=== PATIENT | female | born 1945 | race Caucasian/White ===

== ENCOUNTER 2017-11-02 10:54 | Emergency (ER) | payer MEDICARE, OTHER ==
[2017-11-02 11:25] LABS: BASOPHILS # (AUTO) 0.1 10^3/uL (0.0-0.1); BASOPHILS % (AUTO) 1.4 %; EOSINOPHILS # (AUTO) 0.1 10^3/uL (0.0-0.7); EOSINOPHILS % (AUTO) 0.7 %; LYMPHOCYTES # (AUTO) 2.2 10^3/uL (1.5-3.5); LYMPHOCYTES % (AUTO) 20.9 %; MEAN CORPUSCULAR HEMOGLOBIN 30.1 pg (27.0-31.0); MEAN CORPUSCULAR HGB CONC 34.4 g/dL (32.0-36.0); MEAN CORPUSCULAR VOLUME 87.7 fL (81.0-99.0); MEAN PLATELET VOLUME 8.7 fL (7.9-10.8); MONOCYTES # (AUTO) 0.6 10^3/uL (0.0-1.0); MONOCYTES % (AUTO) 5.5 %; NEUTROPHILS # (AUTO) 7.5 10^3/uL (1.5-6.6); NEUTROPHILS % (AUTO) 71.5 %; PLT - PLATELET COUNT 174 10^3/uL (130-450); RED CELL DISTRIBUTION WIDTH 13.3 % (12.0-15.0); WHITE BLOOD COUNT 10.5 x10^3/uL (4.8-10.8)
[2017-11-02 11:36] LABS: ALBUMIN 4.1 g/dL (3.2-5.5); ALBUMIN/GLOBULIN RATIO 1.4 (1.0-2.2); BILIRUBIN,TOTAL 0.6 mg/dL (0.2-1.0); CALCIUM 9.3 mg/dL (8.5-10.3); CREATININE 0.9 mg/dL (0.4-1.0)
[2017-11-02 11:40] LABS: BILIRUBIN,URINE NEGATIVE (NEGATIVE); GLUCOSE, URINE (UA) NEGATIVE (NEGATIVE); KETONES,URINE (UA) NEGATIVE (NEGATIVE); LEUKOCYTE ESTERASE, URINE SMALL (NEGATIVE); NITRITE,URINE NEGATIVE (NEGATIVE); OCCULT BLOOD,URINE LARGE (NEGATIVE); PROTEIN,URINE TRACE mg/dL (NEGATIVE); UROBILINOGEN,URINE 1 (NORMAL) E.U./dL (NORMAL)
[2017-11-02 11:59] LABS: CLARITY,URINE CLEAR (CLEAR)
[2017-11-02] MEDS ORDERED: KETOROLAC 60 MG/2 ML VIAL IVP STA (12:02)
[2017-11-02] MEDS ORDERED: SODIUM CHLORIDE 0.9% 1,000 ML IV ONE (12:02)
--- NOTE | 2017-11-02 12:03 | ED Physician Documentation ---
PD HPI ABD PAIN - Stated complaint Stated Complaint: VOMITING/WEAKNESS - Chief complaint Chief Complaint: Abd Pain - History obtained from History obtained from: Patient - History of Present Illness Timing - onset: How many days ago (4) Timing - duration: Days (4) Timing - details: Gradual onset, Still present, Waxing and waning Pain level max: 10 Pain level now: 7 Quality: Sharp, Pain Location: LUQ, Suprapubic Radiation: Left flank Improved by: Other (nothing) Associated symptoms: Nausea, Vomiting, Dizzy, Near syncope / syncope Similar symptoms before: Has not had sx before Recently seen: Not recently seen - Additional information Additional information: 72-year-old female is been sick for 4 days with nausea vomiting and left flank pain. She was expecting this to resolve and it has not. She is come to the emergency department now with weakness and nausea with left flank pain. She does state that she has been treated for urinary tract infection about 1 month ago. Review of Systems Constitutional: reports: Chills, Fatigue. denies: Fever Eyes: denies: Decreased vision Ears: denies: Ear pain Nose: denies: Rhinorrhea / runny nose, Congestion Throat: denies: Sore throat Cardiac: denies: Palpitations Respiratory: denies: Dyspnea, Cough GI: reports: Abdominal Pain, Nausea, Vomiting : denies: Dysuria, Frequency Skin: denies: Rash Musculoskeletal: reports: Back pain. 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 - Present Medications Home Medications: Ambulatory Orders Medication Instructions Recorded Confirmed SUMAtriptan [Imitrex] 25 mg PRN PRN 11/02/17 11/02/17 - Allergies Allergies/Adverse Reactions: Allergies Allergy/AdvReac Type Severity Reaction Status Date / Time propoxyphene [From Darvon] Allergy Mild Nausea Verified 11/02/17 11:00 - Social History Does the pt smoke?: No Smoking Status: Never smoker Does the pt drink ETOH?: No - Immunizations Immunizations are current?: Yes PD ED PE NORMAL - Vitals Vital signs reviewed: Yes (hypertensive ) - General General: Alert and oriented X 3, No acute distress, Well developed/nourished - HEENT HEENT: Atraumatic, PERRL - Neck Neck: Supple, no meningeal sign, No bony TTP - Cardiac Cardiac: RRR, No murmur - Respiratory Respiratory: No respiratory distress, Clear bilaterally - Abdomen Abdomen: Soft, Other (LUQ pain to palp with pain to bimanual palpation of the left kidney) - Back Back: No CVA TTP, No spinal TTP - Derm Derm: Normal color, Warm and dry, No rash - Extremities Extremities: No deformity, No edema - Neuro Neuro: Alert and oriented X 3, vest maker 2-12 intact, No motor deficit, No sensory deficit, Normal speech Eye Opening: Spontaneous Motor: Obeys Commands Verbal: Oriented GCS Score: 15 - Psych Psych: Normal mood, Normal affect Results - Vitals Vitals: Vital Signs - 24 hr 11/02/17 11/02/17 10:56 13:14 Temperature 36.5 C Heart Rate 67 74 Respiratory 16 16 Rate Blood Pressure 137/98 H 127/73 O2 Saturation 98 97 Oxygen O2 Source Room air - Labs Labs: Laboratory Tests 11/02/17 11/02/17 11/02/17 11:13 11:13 11:31 WBC 10.5 RBC 5.30 Hgb 16.0 Hct 46.5 MCV 87.7 MCH 30.1 MCHC 34.4 RDW 13.3 Plt Count 174 MPV 8.7 Neut # (Auto) 7.5 H Lymph # (Auto) 2.2 Mineral # (Auto) 0.6 Eos # (Auto) 0.1 Baso # (Auto) 0.1 Absolute Nucleated RBC 0.01 Nucleated RBC % 0.1 Sodium 136 Potassium 3.4 L Chloride 101 Carbon Dioxide 29 Anion Gap 6.0 BUN 15 Creatinine 0.9 Estimated GFR (MDRD) 62 L Glucose 119 H Calcium 9.3 Total Bilirubin 0.6 AST 16 ALT 15 Alkaline Phosphatase 64 Total Protein 7.0 Albumin 4.1 Globulin 2.9 Albumin/Globulin Ratio 1.4 Lipase 111 H Urine Color YELLOW Urine Clarity CLEAR Urine pH 8.0 H Ur Specific [place] 1.010 Urine Protein TRACE Urine Glucose (UA) NEGATIVE Urine Ketones NEGATIVE Urine Occult Blood LARGE H Urine Nitrite NEGATIVE Urine Bilirubin NEGATIVE Urine Urobilinogen 1 (NORMAL) Ur Leukocyte Esterase SMALL H Urine RBC TNTC H Urine WBC 4-5 Ur Squamous Epith Cells RARE Squamous Urine Bacteria Moderate H Ur Microscopic Review INDICATED Urine Culture Comments INDICATED - Rads (name of study) CT abdomen and pelvis with Radiology: Prelim report reviewed (Impression: 1. 5 mm distal left ureter stone with mild to moderate hydronephrosis. 2 Colonic diverticulosis without acute diverticulitis. 3 Uterine fibroids.), EMP read indepedently, See rad report Procedures - IVC sono (time) 1145 Bedside IVC sono: IVC measures (cm) (0.89), IVC collapsed c insp (cm) (complete) , Dehydration (est 2 liter deficit) PD MEDICAL DECISION MAKING - ED course Complexity details: reviewed old records, reviewed results, re-evaluated patient , considered differential, d/w patient, d/w family ED course: Previously healthy 72-year-old female has developed left flank pain and nausea and vomiting. This is been present for about 4 days. She is found to be dehydrated on interrogation of the inferior vena cava and she does appear to have hydronephrosis and some mild left flank tenderness on the left kidney. In comparison to the right the right kidney is sonographically nontender and without hydronephrosis. There is blood in the urine. Concern is for a kidney stone and a CT scan of the abdomen pelvis is undertaken. The patient's urine shows red blood cells and no white blood cells and the CT shows a 5 mm stone in the distal left ureter. This does appear to explain the patient's symptoms. She is administered Toradol and saline. She has good relief with this and we have discussed the natural history of kidney stone and reasons to return to the emergency department. - Sepsis Event Vital Signs: Vital Signs - 24 hr 11/02/17 11/02/17 10:56 13:14 Temperature 36.5 C Heart Rate 67 74 Respiratory 16 16 Rate Blood Pressure 137/98 H 127/73 O2 Saturation 98 97 Oxygen O2 Source Room air Departure - Departure Disposition: 01 Home, Self Care Clinical Impression: Ureterolithiasis Condition: Stable Instructions: ED Stone Renal W Colic Follow-Up: Ifrah Archibald PA-C [Primary Care Provider] - Comments: Today it appears your pain in the left flank is related to a kidney stone that is about ready to pass. You can expect that this will be painful and may last several days to a week. If you have unrelenting pain or pain you are not able to control with Aleve at home, return to the emergency department for pain control. If your pain persists beyond the week seek follow-up with a urologist. Discharge Date/Time: 11/02/17 14:51
[2017-11-02 12:17] LABS: BACTERIA,URINE Moderate /HPF (None Seen); RBC,URINE TNTC /HPF (0-5); SQUAMOUS EPITHELIAL CELL,UR RARE Squamous (<= Few)
[2017-11-02 13:15] VITALS: BP 127/73
--- NOTE | 2017-11-02 13:52 | CT Report ---
Reason: left flank pain Procedure Date: 11/02/2017 Accession Number: [id number] / [id number] Procedure: CT - Abdomen/Pelvis W/O CPT Code: FULL RESULT: EXAM: CT ABDOMEN AND PELVIS EXAM DATE: 11/02/2017 01:13 PM. CLINICAL HISTORY: Left flank pain. COMPARISONS: ABD/PEL 03/16/2009 12:58 AM. TECHNIQUE: Routine helical CT imaging was performed through the abdomen and pelvis. IV contrast: No. Enteric contrast: No. Reconstructions: Coronal and sagittal. In accordance with CT protocol optimization, one or more of the following dose reduction techniques were utilized for this exam: automated exposure control, adjustment of mA and/or KV based on patient size, or use of iterative reconstructive technique. FINDINGS: Lung Bases: Unremarkable. Liver: There are small hypodensities within the liver which appear without significant change and are consistent with cysts. Gallbladder/Bile Ducts: Unremarkable. Spleen: Normal in size and contour. Pancreas: Normal in size and contour. Adrenal Glands: Normal. Kidneys: There is mild to moderate hydronephrosis of the left kidney with perinephric edema. There is a distal left ureter stone measuring 5 mm in diameter on image 80. No right-sided kidney stone or hydronephrosis. Peritoneal Cavity/Bowel: There are a mild to moderate number of colonic diverticula. No dilated bowel loops or transition zone. No free fluid or free air. Pelvic Organs: There is a lobulated contour to the uterus. There is a heterogeneously calcified mass in the uterus measuring 4.6 cm transverse consistent with a fibroid. Urinary bladder appears unremarkable. Vasculature: The abdominal aorta is normal in caliber. Bones: There is grade 1 spondylolisthesis with moderate disk height loss at L4-L5. Other: None. IMPRESSION: 1. 5 mm distal left ureter stone with mild to moderate hydronephrosis. 2. Colonic diverticulosis without acute diverticulitis. 3. Uterine fibroids. RADIA
== END 2017-11-02 14:51 | disposition home or self-care (01) ==
LOC: ED 10:54
DX: N13.2 Hydronephrosis with renal and ureteral calculous obstruction (principal); K57.30 Diverticulosis of large intestine without perforation or abscess without bleeding; D25.9 Leiomyoma of uterus, unspecified; E86.0 Dehydration
CPT/HCPCS: 36415; 74176; 80053; 81001; 81003; 83690; 85025; 87086; 96361; 96374; 99282; 99283

== ENCOUNTER 2019-05-26 16:17 | Outpatient (CLI) | payer MEDICARE, OTHER | END 2019-05-26 16:18 | disposition home or self-care (01) | LOC: COV 16:17 | PROVIDERS: ATTEND Family Medicine | DX: R05 Cough (principal); R50.9 Fever, unspecified | CPT/HCPCS: 81599 ==

== ENCOUNTER 2021-09-21 20:07 | Emergency (ER) | payer MEDICARE, OTHER ==
[2021-09-21 20:36] LABS: BASOPHILS # (AUTO) 0.1 10^3/uL (0.0-0.1); BASOPHILS % (AUTO) 0.7 %; EOSINOPHILS # (AUTO) 0.1 10^3/uL (0.0-0.7); EOSINOPHILS % (AUTO) 1.1 %; HCT - HEMATOCRIT 45.5 % (37.0-47.0); HGB - HEMOGLOBIN 15.3 g/dL (12.0-16.0); LYMPHOCYTES # (AUTO) 2.3 10^3/uL (1.5-3.5); LYMPHOCYTES % (AUTO) 30.7 %; MEAN CORPUSCULAR HEMOGLOBIN 29.8 pg (27.0-31.0); MEAN CORPUSCULAR HGB CONC 33.6 g/dL (32.0-36.0); MEAN CORPUSCULAR VOLUME 88.5 fL (81.0-99.0); MONOCYTES # (AUTO) 0.5 10^3/uL (0.0-1.0); MONOCYTES % (AUTO) 6.8 %; NEUTROPHILS # (AUTO) 4.6 10^3/uL (1.5-6.6); NEUTROPHILS % (AUTO) 60.3 %; RED BLOOD COUNT 5.14 10^6/uL (4.20-5.40); RED CELL DISTRIBUTION WIDTH 12.3 % (12.0-15.0); WHITE BLOOD COUNT 7.6 x10^3/uL (4.8-10.8)
[2021-09-21] MEDS ORDERED: HYDROmorphone 1 MG/ML CARPUJECT IM STA (20:40)
--- NOTE | 2021-09-21 20:43 | ED Physician Documentation ---
History of Present Illness - Stated complaint Stated Complaint: ABD/BACK PX/VOMIT - Chief complaint Chief Complaint: Abd Pain - Additonal information Additional information: 76-year-old female presents emergency department for evaluation of acute left flank pain with radiation into her suprapubic region. She reports that her bladder is on fire. She has had difficulty urinating today. There have been no fevers. She states his history of renal colic and this feels similar. She does appear very uncomfortable. She is not anticoagulated. Takes no medications with the exception of Synthroid. Review of Systems Constitutional: denies: Fever, Chills Ears: reports: Reviewed and negative Cardiac: reports: Reviewed and negative Respiratory: reports: Reviewed and negative GI: reports: Abdominal Pain. 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 - Present Medications Home Medications: Ambulatory Orders Medication Instructions Recorded Confirmed SUMAtriptan [Imitrex] 25 mg PRN PRN 11/02/17 11/02/17 Cefpodoxime Proxetil [Vantin] 100 mg PO Q12H #20 tablet 09/21/21 Ondansetron Odt [Zofran] 4 mg TL Q6H PRN #20 tablet 09/21/21 Tamsulosin HCl [Flomax] 0.4 mg PO DAILY #30 cap 09/21/21 oxyCODONE [Roxicodone] 5 mg PO TID PRN #20 tablet 09/21/21 - Allergies Allergies/Adverse Reactions: Allergies Allergy/AdvReac Type Severity Reaction Status Date / Time propoxyphene [From Darvon] Allergy Mild Nausea Verified 09/21/21 20:17 - Social History Does the pt smoke?: No Smoking Status: Never smoker Does the pt drink ETOH?: No - Immunizations Immunizations are current?: Yes PD ED PE NORMAL - General General: Alert and oriented X 3. No: No acute distress (Appears uncomfortable and in pain) - HEENT HEENT: Atraumatic, Moist mucous membranes - Neck Neck: Supple, no meningeal sign, No adenopathy - Cardiac Cardiac: RRR, No murmur - Respiratory Respiratory: No respiratory distress, Clear bilaterally - Abdomen Abdomen: Normal bowel sounds, Soft. No: Non tender (Tenderness of the left flank. No CVA tenderness. No guarding or rebound. Suprapubic tenderness was elicited.) - Back Back: No CVA TTP - Derm Derm: Normal color, Warm and dry, No rash - Extremities Extremities: No deformity, No tenderness to palpate, Normal ROM s pain - Neuro Neuro: Alert and oriented X 3, president [employer] 2-12 intact Eye Opening: Spontaneous Motor: Obeys Commands Verbal: Oriented GCS Score: 15 - Psych Psych: Normal mood Results - Vitals Vitals: Vital Signs - 24 hr 09/21/21 09/21/21 20:11 20:25 Temperature 36.6 C Heart Rate 67 73 Respiratory 18 17 Rate Blood Pressure 154/74 H 136/83 H O2 Saturation 67 L 96 Oxygen O2 Source Room air - Labs Labs: Laboratory Tests 09/21/21 09/21/21 09/21/21 20:31 20:31 20:50 WBC 7.6 RBC 5.14 Hgb 15.3 Hct 45.5 MCV 88.5 MCH 29.8 MCHC 33.6 RDW 12.3 Plt Count MPV 11.0 H Neut # (Auto) 4.6 Lymph # (Auto) 2.3 [place] # (Auto) 0.5 Eos # (Auto) 0.1 Baso # (Auto) 0.1 Absolute Nucleated RBC 0.00 Nucleated RBC % 0.0 Manual Slide Review Indicated Platelet Estimate NORMAL (130-450,000) Platelet Morphology PLATELET CLUMPING RBC Morph Micro Appear NORMAL APPEARANCE Sodium 142 Potassium 4.3 Chloride 108 Carbon Dioxide 23 Anion Gap 11.0 BUN 18 Creatinine 0.8 Estimated GFR (MDRD) 70 L Glucose 117 H Calcium 9.7 Total Bilirubin 0.5 AST 17 ALT 18 Alkaline Phosphatase 59 Total Protein 7.0 Albumin 4.2 Globulin 2.8 Albumin/Globulin Ratio 1.5 Lipase 31 Urine Color YELLOW Urine Clarity HAZY Urine pH 5.5 Ur Specific [place] 1.025 Urine Protein NEGATIVE Urine Glucose (UA) NEGATIVE Urine Ketones NEGATIVE Urine Occult Blood SMALL H Urine Nitrite NEGATIVE Urine Bilirubin NEGATIVE Urine Urobilinogen 0.2 (NORMAL) Ur Leukocyte Esterase MODERATE H Urine RBC 6-10 H Urine WBC 11-25 H Ur Squamous Epith Cells NONE SEEN Urine Bacteria Moderate H Ur Microscopic Review INDICATED Urine Culture Comments INDICATED - Rads (name of study) Abd pelvis Radiology: Final report received (2 urinary bladder calculi 1 of which is at the left UVJ orifice and likely responsible for moderate left hydro ureter nephrosis) PD MEDICAL DECISION MAKING - ED course Complexity details: reviewed results, re-evaluated patient, considered differential, d/w patient ED course: 76-year-old female presents emergency department for evaluation of acute left flank pain that began today. No fevers no vomiting. Remote history of renal colic in the past. She does endorse burning with urination. Her screening CBC and electrolytes without acute worrisome finding however her urine is consistent with infection. She was given a dose of IV ceftriaxone. A CT of the abdomen unfortunately shows 2 urinary bladder stones. 1 of which is at the left UVJ and is causing some moderate left hydroureter nephrosis. However according to the CT reading the stone appears to have passed into the bladder. I have consulted on the phone with urologist Dr. Clifford At [facility]. We discussed the patient's presentation, her laboratory results as well as the CT imaging findings. He does not feel that the patient warrants emergent transfer as the U UVJ stone is likely now in the bladder. He would like to see the patient in his office early Thursday morning. Over the next 48 hours he is requesting we prescribe appropriate antibiotics, Flomax, nausea and pain medications. The patient will also be dispensed with a strainer at home. If over the course of the weekend she has worsening pain or fever she is to return immediately to the ER. I discussed this course of action and plan with the patient and her at the bedside and they feel comfortable with this plan. Emergent return precautions were discussed for worsening symptoms Departure - Departure Disposition: 01 Home, Self Care Clinical Impression: Calculus of ureterovesical junction (UVJ), Hydronephrosis, left Condition: Stable Record reviewed to determine appropriate education?: Yes Prescriptions: Tamsulosin HCl [Flomax] 0.4 mg PO DAILY #30 cap oxyCODONE [Roxicodone] 5 mg PO TID PRN #20 tablet PRN Reason: Pain Cefpodoxime Proxetil [Vantin] 100 mg PO Q12H #20 tablet Ondansetron Odt [Zofran] 4 mg TL Q6H PRN #20 tablet PRN Reason: Nausea / Vomiting Comments: Nette patterson are seen today in the emergency department for pain in your left flank and pain when you pee. You unfortunately have a urinary tract infection. However in addition to this we do see 2 kidney stones. One is 1.3 centimeters and is already in the bladder. The other 0.4 cm and is passing into the bladder. I discussed this case with urologist At [facility]. He feels that you can be safely discharged home tonight and he would like to see you in his office Thursday. He is expecting you to come to the office and he will fit you into be seen. We are giving you a CD disc of your CT so that you may take it with you to the office. I am sending a prescription for some antibiotics to the [facility] in [place]. Please take twice daily for the next 10 days. A prescription called Zofran is being sent to the pharmacy as well. This will help with nausea. In general I want you to take 600 mg of ibuprofen with food for your pain. For severe pain a prescription of oxycodone has been sent to the pharmacy. Use this cautiously it may make you too dizzy to drive and it can be constipating. Finally in addition I would like you to fill the prescription for medication called Flomax, this medication helps dilate your ureter to make passing stones easier. Please use the urine strainer at home. If you do pass a stone put it in the urine cup and bring it with you to the urology appointment. If over the course of the weekend you have any worsening symptoms, increased pain or fevers you must return immediately to the emergency department [facility] [place] [address] I am prescribing a short course of narcotic pain medication for you. These are potentially dangerous and addictive medications that should be used carefully. These medications may constipate you. Take an folv-clo-azmyppt stool softener (docusate) twice daily with plenty of water while taking these medications. If you go 24 hours without a bowel movement, take [id number] miralax, per package instructions. Do not drink or drive while taking these medications. If you received narcotic or sedating medications while in the emergency department, do not drive for 24 hours. Store this medication in a safe, secure place and out of reach of children. It is a violation of federal law to give or sell this medication to another person or to use in a manner other than prescribed. The ED will not refill narcotic prescriptions, including prescriptions lost or stolen. To dispose of unwanted medications: 1. [facility] at [address] in [place] has a medication drop box. They accept prescription medications (in pill form) Thursday through Thursday 9:00 a.m. to 5:00 p.m. 2. The [facility] accepts prescription medications (in pill form only) for disposal year round. Call for more information. 3. Contact the [facility] for the next [facility] sponsored prescription drug collection event. , [phone], or [phone]; Note that many narcotic pain relievers also contain Tylenol/acetaminophen. Please ensure that your total dose of acetaminophen from all sources does not exceed 3 g (3000 mg) per day.
[2021-09-21 20:48] LABS: ALBUMIN 4.2 g/dL (3.2-5.5); ALBUMIN/GLOBULIN RATIO 1.5 (1.0-2.2); BILIRUBIN,TOTAL 0.5 mg/dL (0.2-1.0); CALCIUM 9.7 mg/dL (8.5-10.3); CREATININE 0.8 mg/dL (0.4-1.0); POTASSIUM 4.3 mmol/L (3.5-5.0)
[2021-09-21 20:52] LABS: SLIDE REVIEW? Indicated
[2021-09-21 21:00] LABS: BILIRUBIN,URINE NEGATIVE (NEGATIVE); GLUCOSE, URINE (UA) NEGATIVE (NEGATIVE); KETONES,URINE (UA) NEGATIVE (NEGATIVE); LEUKOCYTE ESTERASE, URINE MODERATE (NEGATIVE); NITRITE,URINE NEGATIVE (NEGATIVE); OCCULT BLOOD,URINE SMALL (NEGATIVE); PH,URINE 5.5 PH (5.0-7.5); PROTEIN,URINE NEGATIVE (NEGATIVE); UROBILINOGEN,URINE 0.2 (NORMAL) E.U./dL (NORMAL)
[2021-09-21 21:07] LABS: CLARITY,URINE HAZY (CLEAR)
[2021-09-21] MEDS ORDERED: SODIUM CHLORIDE 0.9% 1,000 ML IV STA (21:10)
[2021-09-21 21:14] LABS: BACTERIA,URINE Moderate /HPF (None Seen); SQUAMOUS EPITHELIAL CELL,UR NONE SEEN (<= Few)
[2021-09-21] MEDS ORDERED: cefTRIAXone 1 GM in SODIUM CHLORIDE 0.9% MINIBAG 100 ML IV STA (21:22)
[2021-09-21 21:32] LABS: PLATELET ESTIMATE, MANUAL NORMAL (130-450,000) (NORMAL); PLATELET MORPHOLOGY PLATELET CLUMPING (NORMAL); RBC MORPHOLOGY (MULTIPLE) NORMAL APPEARANCE (NORMAL)
[2021-09-21] MEDS ORDERED: cefTRIAXone 1 GM VIAL ONE (21:43)
--- NOTE | 2021-09-21 21:43 | CT Report ---
PROCEDURE: Abdomen/Pelvis WO INDICATIONS: Left flank pain, dysuria, history of renal colic. TECHNIQUE: Noncontrast 5 mm thick sections acquired from the diaphragms to the symphysis. 5 mm coronal and sagi ttal reformats were then performed. For radiation dose reduction, the following was used: automated exposure control, adjustment of mA and/or kV according to patient size. COMPARISON: 11/02/2017 FINDINGS: There are two urinary bladder calculi, one measuring approximately 4 mm in at the orifice of the left UVJ. The other is approximately 1.3 cm and is immediately adjacent to the smaller calculus in the le ft posterior urinary bladder. The smaller stone appears to be the source of moderate left hydronephro sis although it appears to have fully passed into the urinary bladder at this point. The larger urina ry bladder stone is likely chronic. No additional urinary tract calculi. Remainder of the exam demons trates no significant abnormality. IMPRESSION: Two urinary bladder calculi, one of which is at the left UVJ orifice and is likely responsible for mo derate left hydroureteronephrosis. Reviewed by: Kaveh Valdovinos MD on 09/21/2021 9:41 PM PDT Approved by: Kaveh Valdovinos MD on 09/21/2021 9:41 PM PDT Station ID: [id number]
[2021-09-21] MEDS ORDERED: TAMSULOSIN 0.4 MG CAPSULE PO STA (21:54)
[2021-09-21] MEDS ORDERED: KETOROLAC 30 MG/ML VIAL IVP STA (21:55)
[2021-09-21] MEDS ORDERED: ONDANSETRON 4 MG/2 ML VIAL IVP STA (22:12)
[2021-09-21] MEDS ORDERED: ONDANSETRON ODT 4 MG Prepack 2 TL PRN (22:27)
[2021-09-21 23:21] VITALS: BP 132/64
== END 2021-09-21 23:21 | disposition home or self-care (01) ==
LOC: ED 20:07
DX: N13.6 Pyonephrosis (principal); Z87.442 Personal history of urinary calculi
CPT/HCPCS: 36415; 74176; 80053; 81001; 83690; 85025; 87086; 96365; 96372; 96375; 99283; 99284; A9270; J1170; 81003

== ENCOUNTER 2021-10-21 08:00 | Outpatient (CLI) | payer MEDICARE, OTHER | END 2021-10-21 23:59 | disposition home or self-care (01) | LOC: LAB.N 08:00 | PROVIDERS: ATTEND Physician Assistant Medical | DX: N20.0 Calculus of kidney (principal) | CPT/HCPCS: 87086 ==

== ENCOUNTER 2021-11-07 08:23 | Outpatient (CLI) | payer MEDICARE, OTHER ==
--- NOTE | 2021-11-07 13:15 | DEXA Report ---
PROCEDURE: Dexa Spine and/or Hip INDICATIONS: POST MENOPAUSAL TECHNIQUE: Dual energy x-ray absorptiometry (DXA) was performed on a [employer]. Regions measur ed are the AP Spine, femoral neck, and if needed forearm. COMPARISON: None. FINDINGS: Lumbar Spine: Bone Mineral Density 0.951 g/cm/cm,T score -1.9. Left Hip: Bone Mineral Density 0.741 g/cm/cm,T score -2.1. Left Femoral Neck: Bone Mineral Density 0.608 g/cm/cm, T score -3.1. (T score greater or equal to -1.0: NORMAL) (T score from -1.1 to -2.4: OSTEOPENIA) (T score less than or equal to -2.5 to: OSTEOPOROSIS) Impression: Osteoporosis. Patients with diagnosis of osteoporosis or osteopenia should have regular bone mineral density assess ment. For those eligible for Medicare, routine testing is allowed once every 2 years. Testing frequ ency can be increased for patients who have rapidly progressing disease or for those who are receivin g medical therapy to restore bone mass. Reviewed by: William Garcia MD on 11/07/2021 1:13 PM PDT Approved by: William Garica MD on 11/07/2021 1:13 PM PDT Station ID: [id number]
== END 2021-11-07 08:24 | disposition home or self-care (01) ==
LOC: DI 08:23
PROVIDERS: ATTEND Physician Assistant Medical
DX: M81.0 Age-related osteoporosis without current pathological fracture (principal); Z78.0 Asymptomatic menopausal state

== ENCOUNTER 2022-03-18 13:31 | Outpatient (CLI) | payer MEDICARE, OTHER ==
--- NOTE | 2022-03-19 09:15 | Mammography Report ---
UNILATERAL RIGHT DIGITAL SCREENING MAMMOGRAM 3D/2D: 03/18/2022 CLINICAL: Family history of breast cancer. Routine screening. Comparison is made to exams dated: 08/15/2015 mammogram, 03/30/2014 mammogram, 03/01/2013 mammogram, and 09/15/2011 mammogram - [facility]. The right breast is almost entirely fatty (category a/<25% glandular tissue). There are benign calcifications in the right breast. No significant masses, calcifications, or other findings are seen in the breast. There has been no significant interval change. IMPRESSION: BENIGN There is no mammographic evidence of malignancy. A 1 year screening mammogram is recommended. This exam was interpreted at Station ID: [id number]. NOTE: For mammograms, a report in lay terms will be sent to the patient. Approximately 15% of breast malignancies will not be visualized mammographically. In the management of a palpable breast mass, a negative mammogram must not discourage biopsy of a clinically suspicious lesion. Electronically Signed By: Andrés Bruner M.D. acr/penrad:03/18/2022 14:24:07 ACR BI-RADS Category 2: Benign Finding(s) 3342F PARENCHYMAL PATTERN: (F) - The breast(s) demonstrate(s) diffuse fatty replacement. BI-RADS CATEGORY: (2) - 2 RECOMMENDATION: (ANNUAL) - Recommend routine annual screening mammography. [id number] 1 year screening LATERALITY: (B)
== END 2022-03-18 13:32 | disposition home or self-care (01) ==
LOC: DI.N 13:31
DX: Z12.31 Encounter for screening mammogram for malignant neoplasm of breast (principal); Z80.3 Family history of malignant neoplasm of breast

== ENCOUNTER 2022-12-16 09:38 | Outpatient (CLI) | payer MEDICARE, OTHER ==
--- NOTE | 2022-12-16 16:04 | XRAY Report ---
PROCEDURE: Abdomen 1 View X-Ray INDICATIONS: KIDNEY STONE TECHNIQUE: One view of the abdomen acquired. COMPARISON: 09/21/2021 CT KUB. FINDINGS: Surgical changes and devices: None. Bowel: Bowel gas pattern is normal. Soft tissues: No calcifications are identified overlying the renal beds. There are extensive calcific ations related to a fibroid uterus. On the previous CT, there was a prominent bladder stone as well a s a stone just beyond the left ureterovesical junction. The presence of continued bladder calculi is not excluded in the face of the calcified uterine fibroids. Visualized solid organ contours appear no rmal in size. Bones: No suspicious bony lesions. IMPRESSION: 1. No identification of calcified renal stones. 2. Uterine fibroid calcifications. 3. Cannot exclude bladder calculi by plain films. Reviewed by: Michael Yuen MD on 12/16/2022 4:03 PM PDT Approved by: Michael Yuen MD on 12/16/2022 4:03 PM PDT Station ID: [id number]
== END 2022-12-16 09:39 | disposition home or self-care (01) ==
LOC: DI 09:38
PROVIDERS: ATTEND Physician Assistant Medical
DX: N20.0 Calculus of kidney (principal); Z87.442 Personal history of urinary calculi; D25.9 Leiomyoma of uterus, unspecified

== ENCOUNTER 2023-01-16 13:49 | Outpatient (CLI) | payer MEDICARE, OTHER ==
--- NOTE | 2023-01-16 15:28 | CT Report ---
PROCEDURE: ABDOMEN/PELVIS WO INDICATIONS: HIST OF KIDNEY STONES TECHNIQUE: A CT scan of the abdomen and pelvis was performed without the use of intravenous contrast. Images we re recorded and evaluated at appropriate window settings. Reformats: coronal and sagittal. For radiat ion dose reduction, the following was used: automated exposure control, adjustment of mA and/or kV ac cording to patient size. COMPARISON: Good FINDINGS: Image quality: Good Lower chest: Basal scarring and atelectasis. Heart size within normal limits. Small hiatal hernia. Solid organs: Left lobe liver cyst. Subcentimeter lesions are too small to characterize, probably als o cysts. Gallbladder is unremarkable. No pathologic dilation of the biliary system or pancreatic duct . No splenomegaly. No adrenal nodules. 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 No calcified stones or hydronephrosis. T he ureters are normal diameter. Vessels and lymph nodes: Atherosclerotic calcifications. No pathologic lymphadenopathy by size criter ia. Bowel and peritoneum: There is no evidence of small bowel obstruction. No pathologic ascites. Colonic diverticula are present. Normal diameter appendix. Body wall: Unremarkable Pelvis: There are suspected fibroids with calcifications in the uterus. Adnexal structures are not we ll evaluated on this study. There are phleboliths. No calcified bladder stones identified. Bones: Degenerative changes, no acute or suspicious osseous finding. IMPRESSION: No calcified stones identified. No hydronephrosis. There are calcified pelvic phleboliths and pelvic calcified fibroids. Other incidental and likely nonacute findings are above. Reviewed by: Stephen Celeste MD on 01/16/2023 3:26 PM PST Approved by: Stephen Celeste MD on 01/16/2023 3:26 PM PST Station ID: [id number]
== END 2023-01-16 13:50 | disposition home or self-care (01) ==
LOC: DI 13:49
PROVIDERS: ATTEND Physician Assistant Medical
DX: D25.9 Leiomyoma of uterus, unspecified (principal); I87.8 Other specified disorders of veins

== ENCOUNTER 2023-03-23 08:00 | Outpatient (CLI) | payer MEDICARE, OTHER | END 2023-03-23 08:01 | disposition home or self-care (01) | LOC: LAB.N 08:00 | PROVIDERS: ATTEND Physician Assistant Medical | DX: U07.1 COVID-19 (principal) ==

== ENCOUNTER 2023-08-31 09:00 | Outpatient (CLI) | payer MEDICARE, OTHER ==
--- NOTE | 2023-08-31 16:21 | XRAY Report ---
PROCEDURE: Lumbar Spine 2-3V INDICATIONS: LOW BACK PAIN, ACUTE TECHNIQUE: 3 views of the lumbar spine were acquired. COMPARISON: None. FINDINGS: Surgical change: None. Bones: 5 [id number] vertebrae are present. There is grade 1 anterolisthesis of L4 on L5. Modera te to severe disc and foraminal narrowing are present L4-5 L5-S1. Mild foraminal narrowing L4-5, L5-S 1. No vertebral body compression fractures. No suspicious bony lesions. Soft tissues: Overlying bowel gas pattern is normal. No suspicious soft tissue calcifications. IMPRESSION: Degenerative changes most severe at L4-5, L5-S1. Reviewed by: Gregoria Phillips MD on 08/31/2023 4:19 PM PDT Approved by: Gregoria Phillips MD on 08/31/2023 4:19 PM PDT Station ID: [id number]
== END 2023-08-31 09:30 | disposition home or self-care (01) ==
LOC: DI.N 09:00
PROVIDERS: ATTEND Family Medicine
DX: M47.816 Spondylosis without myelopathy or radiculopathy, lumbar region (principal); M47.817 Spondylosis without myelopathy or radiculopathy, lumbosacral region

== ENCOUNTER 2023-09-09 07:05 | Outpatient (CLI) | payer MEDICARE, OTHER ==
--- NOTE | 2023-09-09 19:12 | MRI Report ---
PROCEDURE: Lumbar Spine WO INDICATIONS: LUMBAR SPONDYLOLISTHESIS TECHNIQUE: Noncontrast sagittal T1 spin echo and T2 fast echo, sagittal STIR, axial T1 and T2 fast spin echo thr ough the lumbar spine. In cases with scoliosis, additional coronal T2 fast spin echo may be performe d. COMPARISON: X-ray lumbar spine 08/31/2023. FINDINGS: Image quality: Excellent. Alignment and Curvature: Grade 1 anterolisthesis of L4 on L5.. Bone Marrow: Scattered vertebral body hemangiomas, largest involving L5. Marrow is of normal overall signal. No acute vertebral body compression fractures. Spinal Cord: Conus medullaris terminates at the L1-L2 level. Visualized cord demonstrates normal si gnal and size. Paraspinous Soft Tissues: No paravertebral masses. T12-L1: Normal in appearance. L1-L2: Mild disc desiccation and facet arthropathy. No central canal stenosis. Mild bilateral neur oforaminal stenosis. L2-L3: Disc desiccation and facet arthropathy. No central canal stenosis. No neuroforaminal stenos is. L3-L4: Disc desiccation and mild diffuse disc bulge. Facet arthropathy and thickening of ligamentum flavum. Moderate central canal stenosis. Mild to moderate bilateral neuroforaminal stenosis. L4-L5: Disc desiccation and moderate disc height loss. Anterolisthesis. Posterior disc bulge. Facet arthropathy and thickening of ligamenta flava. Severe central canal stenosis. Moderate bilateral loreto roforaminal stenosis. L5-S1: Disc desiccation and mild diffuse disc bulge. Facet arthropathy. No significant central aureliano l stenosis. Severe left and moderate right neuroforaminal stenosis. IMPRESSION: 1.Multilevel degenerative changes of the lumbar spine as described above. 2.Severe central canal stenosis at L4-5. Moderate central canal stenosis at L3-L4. 3.Severe left neuroforaminal stenosis at L5-S1. Moderate neuroforaminal stenosis bilaterally at L4-L5 and on the right at L5-S1. Reviewed by: Sarbjit Ospina MD on 09/09/2023 7:10 PM PDT Approved by: Sarbjit Ospina MD on 09/09/2023 7:10 PM PDT Station ID: [id number]
== END 2023-09-09 07:06 | disposition home or self-care (01) ==
LOC: DI 07:05
PROVIDERS: ATTEND Family Medicine
DX: M43.16 Spondylolisthesis, lumbar region (principal); M47.816 Spondylosis without myelopathy or radiculopathy, lumbar region; M47.817 Spondylosis without myelopathy or radiculopathy, lumbosacral region; M48.061 Spinal stenosis, lumbar region without neurogenic claudication; M48.07 Spinal stenosis, lumbosacral region

== ENCOUNTER 2023-10-02 14:38 | Outpatient (CLI) | payer MEDICARE, OTHER ==
--- NOTE | 2023-10-02 20:17 | Ultrasound Report ---
PROCEDURE: Pelvic Complete INDICATIONS: ABD PAIN TECHNIQUE: Real-time transabdominal scanning was performed of the pelvic organs, with image documentation. COMPARISON: CT abdomen and pelvis dated 01/16/2023 FINDINGS: Uterus: Uterus is anteverted and normal in size at 8.1 x 4.4 x 5.6 cm. The myometrium is homogeneou s. An anterior fundal fibroid measures 2.7 x 3.5 x 3.0 cm. The endometrium measures 4 mm in combined thickness. Ovaries: The ovaries are not identified. Other: No free pelvic fluid. IMPRESSION: Fibroid uterus. Otherwise normal exam. Reviewed by: Rut Choi MD on 10/02/2023 7:16 PM [facility] Approved by: Rut Choi MD on 10/02/2023 7:16 PM [facility] Station ID: [id number]
== END 2023-10-02 14:39 | disposition home or self-care (01) ==
LOC: DI 14:38
PROVIDERS: ATTEND Physician Assistant Medical
DX: R10.9 Unspecified abdominal pain (principal); D25.9 Leiomyoma of uterus, unspecified